=== PATIENT | female | born 1990 | race Caucasian/White ===

== ENCOUNTER 2022-11-15 12:36 | Emergency (ER) | payer OTHER, MEDICAID, SELFPAY ==
[2022-11-15 12:48] VITALS: BP 130/77; PULSE 95; RESP 20; TEMP 36.6; O2SAT 100
--- NOTE | 2022-11-15 12:56 | ED.EAR ---
HPI - Ear Problem General Chief complaint: Ear Stated complaint: Ear pain History of Present Illness HPI Narrative: Pt is a 32 y/o female, presents to with bilateral ear pressure and pain in the right ear for the past week, worse the past two days. She is taking Dayquil without much relief. She denies fevers, chills, trauma or otorrhea. She has no hearing changes. She denies any other associated URI symptoms. She denies chance of Related Data Allergies Allergy/AdvReac Type Severity Reaction Status Date / Time No Known Allergies Allergy Unverified 11/15/22 12:50 Review of Systems ENT: Comments: refer to HPI Exam Const: General: cooperative, healthy appearing, comfortable, no acute distress, well developed, alert, awake and Physically active Nutritional Appearance: average body habitus Orientation/consciousness: oriented to person Limitations: no limitations HENMT: Head: normal to inspection Ears: other (serous effusion bilaterally, TM's clear, right TM is retracted) Face/Nose/Sinus: Normal external nose present, Normal nares present, No nasal polyps present, Normal nasal mucous membranes and turbinates present, Normal septum present and No nasal discharge present Face and sinus: normal facial exam and sinuses nontender Mouth: Yes Normal oral and palatal mucosa present, Yes lip normal, Yes tongue normal, Yes Normal salivary glands and ducts present and Yes oropharynx normal Throat: posterior oropharynx normal and uvula midline Eyes: General: appearance normal, both eyes and all related structures Visual Traore: normal visual traore by confrontation Alignment and Position: alignment normal Conjunctivae: conjunctivae normal EOM: EOMs intact bilaterally and EOM abnormal Neck: Neck: normal visual inspection, full ROM, no lymphadenopathy and no meningeal signs Thyroid: thyroid normal Lymphatic: no lymphadenopathy noted Resp: Effort & Inspection: normal respiratory effort and able to speak in complete sentences Auscultation: clear to auscultation bilaterally Cardio: Palpation: normal PMI Rate: regular rate Rhythm: regular rhythm Heart sounds: S1 normal heart sound present and S2 normal heart sound present Peripheral pulses: Peripheral pulses 2+ throughout Course Course Emergency Course: short steroid course, OTC antihistamines, FU with PCP or ENT if not improving. Pt is agreeable with plan Level of Care: Express Care Visit ([id number]) Vital Signs Vital signs: Vital Signs Temperature 36.6 C 11/15/22 12:48 Pulse Rate 95 11/15/22 12:48 Respiratory Rate 20 11/15/22 12:48 Blood Pressure 130/77 11/15/22 12:48 Pulse Oximetry 100 11/15/22 12:48 Oxygen Delivery Room Air 11/15/22 12:48 Temperature 36.6 C 11/15/22 12:48 Pulse Rate 95 11/15/22 12:48 Respiratory Rate 20 11/15/22 12:48 Blood Pressure 130/77 11/15/22 12:48 Pulse Oximetry 100 11/15/22 12:48 Oxygen Delivery Room Air 11/15/22 12:48 Medical Decision Making MDM Narrative Medical decision making narrative: discussed findings, treatment options including oral steroids versus Flonase with antihistamines. she prefers oral steroids, FU with PCP stressed. Pt is agreeable with plan Differential Diagnosis Differential Diagnosis: Eustachian tube dysfunction, AOM, OTE, serous OM Vital Signs Vital Signs: Vital Signs Temperature 36.6 C 11/15/22 12:48 Pulse Rate 95 11/15/22 12:48 Respiratory Rate 20 11/15/22 12:48 Blood Pressure 130/77 11/15/22 12:48 Pulse Oximetry 100 11/15/22 12:48 Oxygen Delivery Room Air 11/15/22 12:48 Temperature 36.6 C 11/15/22 12:48 Pulse Rate 95 11/15/22 12:48 Respiratory Rate 20 11/15/22 12:48 Blood Pressure 130/77 11/15/22 12:48 Pulse Oximetry 100 11/15/22 12:48 Oxygen Delivery Room Air 11/15/22 12:48 Discharge Plan Discharge Clinical Impression: Acute serous otitis media of both ears Qualifiers: Recurrence: non-recurrent Q
== END 2022-11-15 13:07 | disposition home or self-care (01) ==
PROVIDERS: Emergency Provider Nurse Practitioner Family
DX: H65.03 Acute serous otitis media, bilateral (principal)
CPT/HCPCS: 99203; G0463